=== PATIENT | female | born 1965 | race Caucasian/White ===

== ENCOUNTER 2020-11-05 17:15 | Emergency (ER) | payer OTHER ==
[2020-11-05 17:24] VITALS: BMI 35.2
[2020-11-05] MEDS ORDERED: MECLIZINE HCL 25 MG TABLET (FP) PO ONE (19:14)
[2020-11-05 19:24] LABS: BASO % 0.7 % (0-2.0); EOS % 1.4 % (0-4.5); HEMATOCRIT 37.9 % (32.4-45.2); HEMOGLOBIN 12.6 GM/dL (10.7-15.3); LYMPH % 37.1 % (8-40); MCH 29.8 pg (25.7-33.7); MCHC 33.2 g/dl (32.0-36.0); MEAN CELL VOLUME 89.6 fl (80-96); MEAN PLT VOLUME 8.6 fl (7.5-11.1); MONO % 6.4 % (3.8-10.2); NEUT % 54.4 % (42.8-82.8); PLATELET COUNT 272 K/MM3 (134-434); RBC 4.23 M/mm3 (3.60-5.2); RDW 13.6 % (11.6-15.6); WHITE BLOOD COUNT 5.7 K/mm3 (4.0-10.0)
[2020-11-05 19:38] LABS: ALBUMIN 3.6 g/dl (3.4-5.0); BLOOD UREA NITROGEN 16.3 mg/dL (7-18); CALCIUM 8.5 mg/dL (8.5-10.1)
[2020-11-05] MEDS ORDERED: MECLIZINE HCL 25 MG TABLET (FP) ONE (19:40)
[2020-11-05 19:42] LABS: CREATININE 0.8 mg/dL (0.55-1.3)
[2020-11-05 19:43] LABS: BILIRUBIN,TOTAL 0.3 mg/dL (0.2-1)
[2020-11-05 19:44] LABS: TOT PROT 7.4 g/dl (6.4-8.2)
[2020-11-05 21:31] VITALS: BP 134/87; PULSE 74; TEMP 98.9
== END 2020-11-05 21:32 | disposition home or self-care (01) ==
LOC: JER 17:15
DX: R42 Dizziness and giddiness (principal)
CPT/HCPCS: 36415; 80053; 83735; 85025; 93005; 93010; 99284-25; C9803; U0003; U0005